=== PATIENT | male | born 1955 | race Caucasian/White ===

== ENCOUNTER 2021-12-16 10:42 | Day surgery (SDC) | payer MEDICARE, OTHER ==
[2021-12-16] VITALS (11 sets, daily range): BP systolic 94–111; BP diastolic 57–71
[2021-12-16 11:36] LABS: BASOPHILS % (AUTO) 1 % (0-10); HEMOGLOBIN 8.5 g/dL (13.3-17.7); LYMPHOCYTES % (AUTO) 12 % (12-44); MEAN PLATELET VOLUME 11.1 fL (9.0-12.2)
[2021-12-16 11:38] LABS: ABSOLUTE RETIC # 52 10e9/uL (24-90); EOSINOPHILS # (AUTO) 0.6 10^3/uL (0.0-0.3); EOSINOPHILS % (AUTO) 13 % (0-10); HEMATOCRIT 25 % (40-54); LYMPHOCYTES # (AUTO) 0.6 10^3/uL (1.0-4.0); MEAN CORPUSCULAR HEMOGLOBIN 35 pg (25-34); MEAN CORPUSCULAR HGB CONC 34 g/dL (32-36); MEAN CORPUSCULAR VOLUME 102 fL (80-99); MONOCYTES # (AUTO) 0.5 10^3/uL (0.0-1.0); MONOCYTES % (AUTO) 11 % (0-12); NEUTROPHILS % (AUTO) 64 % (42-75); PLATELET COUNT 48 10^3/uL (130-400); RETICULOCYTE % 2.14 % (0.50-2.40); WHITE BLOOD COUNT 4.8 10^3/uL (4.3-11.0)
[2021-12-16 11:57] LABS: PROTHROMBIN TIME PATIENT 13.3 SEC (12.2-14.7)
[2021-12-16 11:59] LABS: EOSINOPHILS % (MANUAL) 11 %; LYMPHOCYTES % (MANUAL) 16 %; MONOCYTES % (MANUAL) 9 %; NEUTROPHILS % (MANUAL) 64 %
[2021-12-16] MEDS ORDERED: NS IV 1000 ML 1,000 ML IV STA (11:59)
[2021-12-16 12:00] LABS: ANISOCYTOSIS SLIGHT; PLATELET ESTIMATE DECREASED
[2021-12-16] MEDS ORDERED: LIDOCAINE 1% INJ 20 ML VIAL INJ ONE (12:00)
[2021-12-16] MEDS ORDERED: fentaNYL INJ 100 MCG/2 ML AMP IVP ONE (12:00)
[2021-12-16] MEDS ORDERED: MIDAZOLAM 2 MG/2 ML (VERSED) VIAL IVP ONE (12:00)
--- NOTE | 2021-12-16 13:18 | Pre-Op Note & Conscious Sedat ---
Pre-Operative Progress Note H&P Reviewed The H&P was reviewed, patient examined and no changes noted. Date H&P Reviewed: December 16, 2021 Time H&P Reviewed: 11:00 Pre-Op Diagnosis: myeloma Conscious Sedation Pre-Proced Time 11:00 ASA Score 2 For ASA 3 and 4: Consider anesthesia and medical clearance. Also, for patients with a history of failed moderate sedation consider anesthesia. Airway Lungs Heart ASA score ASA 1: a normal healthy patient ASA 2: a patient with a mild systemic disease (mid diabetes, controlled hypertension, obesity ASA 3: a patient with a severe systemic disease that limits activity (angina, COPD, prior Myocardial infarction) ASA 4: a patient with an incapacitating disease that is a constant threat to life (CHF, renal failure) ASA 5: a moribund patient not expected to survive 24 hrs. (ruptured aneurysm) ASA 6: a declared brain- patient whose organs are being harvested. For emergent operations, add the letter E after the classification Mallampati Classification Grade 2 Sedation Plan Analgesia, Amnesia, Plan communicated to team members, Discussed options with patient/fam, Discussed risks with patient/fam The patient is an appropriate candidate to undergo the planned procedure, sedation, and anesthesia. The patient immediately re-assessed prior to indication. JANICE COUGHLIN MD December 16, 2021 13:18
[2021-12-16] MEDS ORDERED: HYDROcodone/APAP 5 MG/325 MG (LORTAB) TAB PO PRN (13:30)
--- NOTE | 2021-12-16 13:56 | Diagnostic Imaging Report ---
INDICATION: Bone marrow biopsy. After informed written consent was obtained from the patient, patient was brought to the CT suite and placed on table in the prone position. Axial imaging through the pelvis was performed to evaluate appropriate entry site. Procedure was performed utilizing conscious sedation with radiology nursing and constant patient monitoring. Patient was given a total of 50 mcg of fentanyl intravenously. Total procedure time was 3 minutes. Bone marrow needle was advanced and placed with its tip along the posterior cortex of the right iliac bone. The needle was advanced through the cortex utilizing the bone marrow drill. Two bone marrow aspirates were then obtained. Next, the drill was utilized to obtain a bone marrow core sample. The needle was removed, and hemostasis was obtained using manual compression. The patient tolerated the procedure well and left the department in stable condition. IMPRESSION: Successful CT-guided bone marrow aspiration and core biopsy utilizing conscious sedation. Pathology results are currently pending. Dictated by: Dictated on workstation # [id number]
== END 2021-12-16 14:50 | disposition home or self-care (01) ==
LOC: RAD 10:42 → SDC 12:45 → RAD 14:50
PROVIDERS: ATTEND Internal Medicine Hematology & Oncology
DX: D53.9 Nutritional anemia, unspecified (principal); D70.9 Neutropenia, unspecified; D72.10 Eosinophilia, unspecified; D64.9 Anemia, unspecified; D69.6 Thrombocytopenia, unspecified; C34.90 Malignant neoplasm of unspecified part of unspecified bronchus or lung
CPT/HCPCS: 36415; 38222; 77012; 85007; 85027; 85045; 85055; 85610; 85730; 88237; 88264